=== PATIENT | female | born 1940 | race Caucasian/White ===

== ENCOUNTER 2016-07-11 10:22 | Outpatient (CLI) | payer OTHER ==
[~2016-07-11 10:22] MED LIST: LISI40TA4 PO; LOVA20TA2 PO; LOVI80 SQ; OMEP20CA10 PO; TRIA1CAP6 PO; WARF5TAB2 PO
== END 2016-07-11 19:37 | disposition home or self-care (01) ==
LOC: SMA 10:22
PROVIDERS: ATTEND Internal Medicine
DX: Z12.31 Encounter for screening mammogram for malignant neoplasm of breast (principal)
CPT/HCPCS: 77067; G0202

== ENCOUNTER 2018-10-08 13:32 | Outpatient (CLI) | payer OTHER ==
[~2018-10-08 13:32] MED LIST changes: -LOVI80 SQ
== END 2018-10-08 20:00 | disposition home or self-care (01) ==
LOC: SMA 13:32
PROVIDERS: ATTEND Internal Medicine
DX: Z12.31 Encounter for screening mammogram for malignant neoplasm of breast (principal)
CPT/HCPCS: 77067